=== PATIENT | male | born 1950 ===

== ENCOUNTER 2017-04-05 17:30 | Emergency (ER) | payer MEDICAID ==
[2017-04-05 17:37] VITALS: BP 125/93; PULSE 89; RESP 16; TEMP 98.3; O2SAT 98
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
== END 2017-04-05 22:35 | disposition home or self-care (01) ==
LOC: H.ER 17:30
DX: F10.10 Alcohol abuse, uncomplicated (principal)

== ENCOUNTER 2017-04-06 13:37 | Emergency (ER) | payer MEDICAID ==
[2017-04-06 13:44] VITALS: PULSE 68; RESP 18; TEMP 97.8; O2SAT 99
[2017-04-06 13:45] VITALS: BP 126/73
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
== END 2017-04-06 17:49 | disposition home or self-care (01) ==
LOC: H.ER 13:37
DX: S59.902A Unspecified injury of left elbow, initial encounter (principal); S09.93XA Unspecified injury of face, initial encounter; Y09 Assault by unspecified means